=== PATIENT | male | born 1940 | race Caucasian/White ===

== ENCOUNTER 2016-12-11 20:12 | Inpatient (IN) | payer OTHER, MEDICARE ==
[2016-12-11 20:02] VITALS: O2SAT 97
[2016-12-11] MEDS ORDERED: DIPHTH/TETANUS/ACEL PERTUSSIS (BOOSTER) 0.5 ML VIAL/PFS IM ONE ×2 (20:16→20:39)
[2016-12-11] MEDS ORDERED: ceFAZolin 2 GM PREMIX 50 ML ONE (20:16)
[2016-12-11] MEDS ORDERED: LIDOCAINE 1%/EPINEPHrine 1:100,000 SOLN 30 ML VIAL ONE ×2 (20:16→21:56)
[2016-12-11] MEDS ORDERED: MORPHINE SULFATE 8 MG/ML INJ ONE (20:20)
[2016-12-11] MEDS ORDERED: ONDANSETRON HCL 4 MG/2 ML VIAL ONE (20:20)
[2016-12-11 20:31] LABS: I-STAT POTASSIUM 3.6 MMOL/L (3.5-4.9)
[2016-12-11 20:39] LABS: AUTOMATED NEUTROPHIL # 4.5 TH/MM3 (1.8-7.7); BASOPHIL % 0.1 % (0.0-2.0); EOSINOPHIL # 0.1 TH/MM3 (0-0.4); HEMATOCRIT 37.6 % (39.0-51.0); LYMPH % 55.5 % (9.0-44.0); LYMPHOCYTE # 7.2 TH/MM3 (1.0-4.8); MEAN CELL VOLUME 90.9 FL (80.0-100.0); MEAN CORPUSCULAR HEMOGLOBIN 31.3 PG (27.0-34.0); MEAN CORPUSCULAR HGB CONC 34.4 % (32.0-36.0); MONO % 8.3 % (0.0-8.0); NEUT % 35.1 % (16.0-70.0); PLATELET COUNT 193 TH/MM3 (150-450); RED BLOOD COUNT 4.13 MIL/MM3 (4.50-5.90); RED CELL DISTRIBUTION WIDTH 13.2 % (11.6-17.2); WHITE BLOOD COUNT 12.9 TH/MM3 (4.0-11.0)
[2016-12-11] MEDS ORDERED: ceFAZolin 2 GM PREMIX 50 ML IV STA (20:39)
[2016-12-11 20:41] LABS: HEMO FLAGS AUTO DIFF
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
[2016-12-11 20:45] LABS: APTT (PATIENT) 24.8 SEC (24.3-30.1); PROTHROMBIN TIME - PATIENT 10.9 SEC (9.8-11.6)
[2016-12-11] MEDS ORDERED: SODIUM CHLOR 0.9% 1000 ML INJ 1,000 ML IV ONE (20:45)
[2016-12-11] MEDS ORDERED: IOHEXOL 350 MG/ML 10 ML VIAL (for RAD DIAG) IV ONE (20:46)
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
[2016-12-11 21:12] LABS: BANDS 1 % (0-6); NEUTROPHIL # MANUAL DIFF 4.3 TH/MM3 (1.8-7.7); PLATELET ESTIMATE SMEAR NORMAL (NORMAL); PLATELET MORPHOLOGY NORMAL (NORMAL); POLYS (SEG NEUTROPHILS) 32 % (16-70); SCAN/DIFF FINAL DIFF MANUAL; WBC DIFF SAMPLE 100
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
[2016-12-11] MEDS ORDERED: CHLORHEXIDINE GLUCONATE 2 % 1 PACK (2 CLOTHS) TOP PRN (21:45)
[2016-12-11] MEDS ORDERED: ENALAPRILAT 1.25 MG/ML VIAL IV PRN (21:45)
[2016-12-11] MEDS ORDERED: MISCELLANEOUS NURSING INFORMATION XX SCH (21:45)
[2016-12-11] MEDS: DOCUSATE SODIUM 100 MG CAP PO SCH (21:45)
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
[2016-12-11 22:00] VITALS: PULSE 104
[2016-12-11] MEDS: SODIUM CHLOR 0.9% 1000 ML INJ 1,000 ML IV SCH (22:00)
[2016-12-11] MEDS ORDERED: LIDOCAINE 1%/EPINEPHrine 1:200,000 PF SOLN 30 ML VIAL OTHER ONE (22:00)
[2016-12-11] MEDS: MORPHINE SULFATE 8 MG/ML INJ IV PUSH PRN ×2 (22:20→23:38)
[2016-12-11] MEDS: SODIUM CHLORIDE 0.9% FLUSH 5 ML FLUSH IVF PRN (22:35)
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
[2016-12-11 23:18] VITALS: O2SAT 96
[2016-12-11] MEDS: PANTOPRAZOLE SODIUM 40 MG VIAL IVP SCH (23:38)
[2016-12-11] MEDS: ONDANSETRON HCL 4 MG/2 ML VIAL IV PRN (23:38)
[2016-12-12] VITALS (14 sets, daily range): BP systolic 120–193; BP diastolic 60–90; PULSE 74–98; RESP 14–22; TEMP 97.6–98.8; O2SAT 93–99
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
[2016-12-12] MEDS: BACITRACIN TOP OINT 15 GM TUBE TOP SCH ×3 (00:36→21:00)
[2016-12-12] MEDS: MORPHINE SULFATE 8 MG/ML INJ IV PUSH PRN ×4 (01:59→21:05)
[2016-12-12] MEDS ORDERED: PROMETHAZINE INJ 25 MG/ML VIAL IM ONE (02:15)
[2016-12-12] MEDS ORDERED: LIDOCAINE 1%/EPINEPHrine 1:200,000 PF SOLN 30 ML VIAL OTHER ONE (03:45)
[2016-12-12] MEDS: CHLORHEXIDINE GLUCONATE 2 % 1 PACK (2 CLOTHS) TOP SCH (04:00)
[2016-12-12 04:09] LABS: AUTOMATED NEUTROPHIL # 10.4 TH/MM3 (1.8-7.7); HEMO FLAGS DIFF FINAL; LYMPH % 4.1 % (9.0-44.0); LYMPHOCYTE # 0.5 TH/MM3 (1.0-4.8); MEAN CELL VOLUME 91.2 FL (80.0-100.0); MEAN CORPUSCULAR HEMOGLOBIN 30.5 PG (27.0-34.0); MEAN CORPUSCULAR HGB CONC 33.5 % (32.0-36.0); MONO % 7.8 % (0.0-8.0); NEUT % 88.1 % (16.0-70.0); PLATELET COUNT 185 TH/MM3 (150-450); RED BLOOD COUNT 4.39 MIL/MM3 (4.50-5.90); RED CELL DISTRIBUTION WIDTH 13.2 % (11.6-17.2); WHITE BLOOD COUNT 11.8 TH/MM3 (4.0-11.0)
[2016-12-12 04:31] LABS: BICARBONATE 24.8 MEQ/L (21.0-32.0); POTASSIUM 4.3 MEQ/L (3.5-5.1)
--- NOTE | 2016-12-12 05:04 | RADRPT ---
EXAM DATE/TIME: 12/12/2016 04:14 [facility] COMPARISON: CHEST SINGLE AP, December 11, 2016, 20:06. INDICATIONS : Shortness of breath. MEDICAL HISTORY : None. SURGICAL HISTORY : None. ENCOUNTER: Initial ACUITY: 2 days PAIN SCORE: Non-responsive. LOCATION: Bilateral chest FINDINGS: There is dependent atelectasis in the lungs. No new consolidation or effusion. No pneumothorax. Heart size upper limits normal. CONCLUSION: 1. Dependent atelectasis in the lungs. No new consolidation or effusion. Elton Cross MD on December 12, 2016 at 5:00 Board Certified Radiologist. This report was verified electronically.
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
[2016-12-12] MEDS: ONDANSETRON HCL 4 MG/2 ML VIAL IV PRN ×3 (08:13→21:04)
[2016-12-12] MEDS: DOCUSATE SODIUM 100 MG CAP PO SCH ×2 (09:00→21:00)
[2016-12-12] MEDS ORDERED: GLUCAGON 1 MG/ML VIAL OTHER PRN (10:00)
[2016-12-12] MEDS: SODIUM CHLOR 0.9% 1000 ML INJ 1,000 ML IV SCH ×2 (11:40→23:20)
[2016-12-12] MEDS: INSULIN NovoLIN REGULAR SUPPLEMENTAL SCALE SQ SCH ×3 (11:45→21:00)
[2016-12-12] MEDS ORDERED: MULTIVITAMIN INJ 10 ML, THIAMINE INJ 100 MG, FOLIC ACID INJ 1 MG in SODIUM CHLORID 0.9%... IV ONE (12:00)
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
--- NOTE | 2016-12-12 18:47 | RADRPT ---
EXAM DATE/TIME: 12/12/2016 17:19 [facility] COMPARISON: CT CERVICAL SPINE W/O CONTRAST, December 11, 2016, 20:33. INDICATIONS : Fracture. CONTRAST: 18 cc Omniscan (gadodiamide) IV MEDICAL HISTORY : Hypertension. Diabetes mellitus type 2. SURGICAL HISTORY : Left knee partial replacement. ENCOUNTER: Subsequent ACUITY: 2 day PAIN SCORE: 7/10 LOCATION: neck TECHNIQUE: Multiplanar, multisequence MRI examination of the cervical spine was performed. FINDINGS: Comminuted burst fracture of the C2 vertebral body is again identified. There is prevertebral soft ti ssue swelling but no evidence of significant epidural hematoma. Slight anterior subluxation of C2 on C3 remains evident. Fracture fragments remain well apposed. The vertebral arteries especially on the right containing normal signal void. There no findings sugge stive of occlusion or injury. Craniocervical junction and remaining vertebral body alignment are intact. Degenerative disc disease or spondylosis is again identified at C4-5, C5-6 and C6-7. The spinal cord intrinsically appears normal. There is no evidence of edema or focal hemorrhage. CONCLUSION: Burst fracture of C2 with slight anterior subluxation of C2 on C3. Prevertebral soft tissue swelling involving the upper and mid cervical spine. No evidence of significant epidural hematoma, vertebral artery occlusion or spinal cord injury. José Manuel Vivar MD on December 12, 2016 at 18:37 Board Certified Radiologist. This report was verified electronically.
[2016-12-12] MEDS ORDERED: GADODIAMIDE PF 287 MG/ML 20 ML VIAL (for RAD MRI) IV ONE (18:55)
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
[2016-12-12] MEDS: MAGNESIUM HYDROXIDE SUSP 30 ML CUP PO SCH (21:00)
[2016-12-12] MEDS: SODIUM CHLORIDE 0.9% FLUSH 5 ML FLUSH IVF PRN (21:05)
[2016-12-12] MEDS: PANTOPRAZOLE SODIUM 40 MG VIAL IVP SCH (21:05)
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
[2016-12-13] VITALS (12 sets, daily range): BP systolic 145–164; BP diastolic 66–83; PULSE 70–92; RESP 13–26; TEMP 97.5–98.8; O2SAT 94–100
[2016-12-13] MEDS: SODIUM CHLOR 0.9% 1000 ML INJ 1,000 ML IV SCH ×3 (00:23→15:28)
[2016-12-13] MEDS: MORPHINE SULFATE 8 MG/ML INJ IV PUSH PRN ×3 (02:22→16:43)
[2016-12-13] MEDS: CHLORHEXIDINE GLUCONATE 2 % 1 PACK (2 CLOTHS) TOP SCH (04:00)
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
[2016-12-13] MEDS: BACITRACIN TOP OINT 15 GM TUBE TOP SCH ×2 (09:00→22:32)
[2016-12-13] MEDS: DOCUSATE SODIUM 100 MG CAP PO SCH ×2 (09:45→22:27)
[2016-12-13] MEDS: ONDANSETRON HCL 4 MG/2 ML VIAL IV PRN (10:02)
[2016-12-13] MEDS ORDERED: DEXAMETHASONE SOD PHOS 4 MG/ML VIAL IV PUSH PRN (11:00)
[2016-12-13] MEDS ORDERED: PROCHLORPERAZINE INJ 10 MG/2 ML VIAL IVS PRN (11:00)
[2016-12-13] MEDS: INSULIN NovoLIN REGULAR SUPPLEMENTAL SCALE SQ SCH ×3 (11:00→22:30)
[2016-12-13] MEDS ORDERED: METF500T PO (11:24)
[2016-12-13] MEDS ORDERED: GLIP5TAB8 PO (11:29)
[2016-12-13] MEDS ORDERED: CHOL100025 CHEW (11:29)
[2016-12-13] MEDS ORDERED: AMLO5CAP3 PO (11:29)
[2016-12-13] MEDS ORDERED: VITA10002 PO (11:29)
[2016-12-13] MEDS ORDERED: ATEN25TA PO ×2 (11:29)
[2016-12-13] MEDS ORDERED: ASPI-110 PO (11:29)
[2016-12-13] MEDS ORDERED: SIMV40TA PO (11:29)
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
[2016-12-13] MEDS: MAGNESIUM HYDROXIDE SUSP 30 ML CUP PO SCH (22:27)
[2016-12-13] MEDS: PANTOPRAZOLE SODIUM 40 MG VIAL IVP SCH (23:27)
[2016-12-14] VITALS: BP 151/80; PULSE 87; RESP 18; TEMP 95.8; O2SAT 93
[2016-12-14 04:00] VITALS: BP 158/88; PULSE 81; RESP 22; TEMP 96.8; O2SAT 93
[2016-12-14] MEDS: CHLORHEXIDINE GLUCONATE 2 % 1 PACK (2 CLOTHS) TOP SCH (05:47)
[2016-12-14] MEDS: INSULIN NovoLIN REGULAR SUPPLEMENTAL SCALE SQ SCH ×4 (06:20→20:49)
[2016-12-14 08:00] VITALS: BP 177/93; PULSE 91; RESP 20; TEMP 97.1; O2SAT 98
[2016-12-14] MEDS ORDERED: NON-FORMULARY DRUG (Amlodipine-Benazepril 1 CAP) PO SCH (09:00)
[2016-12-14] MEDS: BACITRACIN TOP OINT 15 GM TUBE TOP SCH ×2 (09:00→21:00)
[2016-12-14] MEDS: oxyCODONE/ACETAMINOPHEN 5 MG/325 MG TAB PO PRN ×2 (09:41→15:34)
[2016-12-14] MEDS: SODIUM CHLOR 0.9% 1000 ML INJ 1,000 ML IV SCH ×3 (09:41→20:58)
[2016-12-14] MEDS: amLODIPine BESYLATE 5 MG TAB PO SCH (09:42)
[2016-12-14] MEDS: LACTULOSE SYRUP 20 GM/30 ML CUP PO SCH (09:42)
[2016-12-14] MEDS: CHOLECALCIFEROL (VIT D3) 1000 UNIT TAB PO SCH (09:42)
[2016-12-14] MEDS: CYANOCOBALAMIN 1,000 MCG TAB PO SCH (09:42)
[2016-12-14] MEDS: LISINOPRIL 20 MG TAB PO SCH (09:42)
[2016-12-14] MEDS: DOCUSATE SODIUM 100 MG CAP PO SCH ×2 (09:42→20:51)
[2016-12-14] MEDS: ATENOLOL 25 MG TAB PO SCH (09:42)
[2016-12-14] MEDS: metFORMIN HCL 500 MG TAB PO SCH ×2 (09:45→15:33)
[2016-12-14] MEDS: glipiZIDE 5 MG TAB PO SCH ×2 (09:45→15:33)
--- NOTE | 2016-12-14 11:44 | RADRPT ---
EXAM DATE/TIME: 12/14/2016 11:20 [facility] COMPARISON: MRI CERVICAL SPINE W & W/O CONTRAST, December 12, 2016, 17:19. CT CERVICAL SPINE W/O CONTRAST, December 11, 2016, 20:33. INDICATIONS : Evaluate C-2 fracture MEDICAL HISTORY : Hypertension. Diabetes mellitus type I. SURGICAL HISTORY : Total knee replacement, left. ENCOUNTER: Subsequent ACUITY: 4 - 6 days PAIN SCORE: 2/10 LOCATION: chest FINDINGS: There is minimal subluxation of C2 on C3 unchanged from the CT scan in this patient with hangman's ty pe fracture with subluxation of 3-4 mm.. The foramen are clear. Multilevel degenerative changes prese nt throughout the cervical spine. CONCLUSION: 1. Unchanged alignment of hangman's fracture C2 Norm Currie MD on December 14, 2016 at 11:39 Board Certified Radiologist. This report was verified electronically.
[2016-12-14 12:00] VITALS: BP 147/67; PULSE 64; RESP 18; TEMP 97.1; O2SAT 97
[2016-12-14] MEDS ORDERED: ONDA4INJ2 IV (12:45)
[2016-12-14] MEDS ORDERED: DOCU1CAP39 PO (12:45)
[2016-12-14] MEDS ORDERED: PANT40P PO (12:45)
[2016-12-14] MEDS ORDERED: PROC1INJ IVS (12:45)
[2016-12-14] MEDS ORDERED: OXYC1TAB63 PO (12:45)
[2016-12-14] MEDS ORDERED: MILKSUS PO (12:45)
[2016-12-14] MEDS ORDERED: LACT10SO PO (12:45)
[2016-12-14] MEDS ORDERED: LISI-515 PO (12:45)
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
[2016-12-14 16:00] VITALS: BP 148/73; PULSE 64; RESP 18; TEMP 98.1; O2SAT 97
[2016-12-14 20:00] VITALS: BP 162/82; PULSE 61; RESP 22; TEMP 97.2; O2SAT 97
[2016-12-14] MEDS: MAGNESIUM HYDROXIDE SUSP 30 ML CUP PO SCH (20:51)
[2016-12-14] MEDS: PRAVASTATIN SOD 80 MG TAB PO SCH (20:51)
[2016-12-14] MEDS: PANTOPRAZOLE SODIUM 40 MG VIAL IVP SCH (20:53)
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
[2016-12-15] VITALS: BP 156/81; PULSE 59; RESP 18; TEMP 97.6; O2SAT 96
[2016-12-15 04:00] VITALS: BP 178/78; PULSE 67; RESP 20; TEMP 97.7; O2SAT 97
[2016-12-15] MEDS: CHLORHEXIDINE GLUCONATE 2 % 1 PACK (2 CLOTHS) TOP SCH (04:00)
[2016-12-15] MEDS: metFORMIN HCL 500 MG TAB PO SCH ×2 (06:45→17:04)
[2016-12-15] MEDS: glipiZIDE 5 MG TAB PO SCH ×2 (06:45→17:04)
[2016-12-15] MEDS: INSULIN NovoLIN REGULAR SUPPLEMENTAL SCALE SQ SCH ×4 (06:45→20:23)
[2016-12-15] MEDS ORDERED: BISACODYL EC 5 MG TABEC PO ONE (07:30)
[2016-12-15] MEDS ORDERED: BISACODYL 10 MG SUPP RECTAL ONE (07:30)
[2016-12-15] MEDS ORDERED: MAGNESIUM CITRATE SOLN 300 ML BTL PO ONE (07:30)
[2016-12-15 08:05] VITALS: BP 160/77; PULSE 62; RESP 18; TEMP 96.4; O2SAT 94
[2016-12-15] MEDS: DOCUSATE SODIUM 100 MG CAP PO SCH ×2 (09:54→20:22)
[2016-12-15] MEDS: SODIUM CHLOR 0.9% 1000 ML INJ 1,000 ML IV SCH ×2 (09:54→17:04)
[2016-12-15] MEDS: ATENOLOL 25 MG TAB PO SCH (09:55)
[2016-12-15] MEDS: LISINOPRIL 20 MG TAB PO SCH (09:55)
[2016-12-15] MEDS: amLODIPine BESYLATE 5 MG TAB PO SCH (09:55)
[2016-12-15] MEDS: LACTULOSE SYRUP 20 GM/30 ML CUP PO SCH (09:55)
[2016-12-15] MEDS: CYANOCOBALAMIN 1,000 MCG TAB PO SCH (09:55)
[2016-12-15] MEDS: CHOLECALCIFEROL (VIT D3) 1000 UNIT TAB PO SCH (09:55)
[2016-12-15] MEDS: BACITRACIN TOP OINT 15 GM TUBE TOP SCH ×2 (10:05→20:23)
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
--- NOTE | 2016-12-15 15:58 | RADRPT ---
EXAM DATE/TIME: 12/15/2016 14:44 [facility] COMPARISON: CT CERVICAL SPINE W/O CONTRAST, December 11, 2016, 20:33. MRI CERVICAL SPINE W & W/O CONTRAST, December 12, 2016, 17:19. SPINE CERVICAL LTD (AP&LAT), December 14, 2016, 11:20. INDICATIONS : Evaluate C2 Fracture MEDICAL HISTORY : Hypertension. Diabetes mellitus type I. SURGICAL HISTORY : Total knee replacement, left. ENCOUNTER: Subsequent ACUITY: 4 - 6 days PAIN SCORE: 2/10 LOCATION: neck FINDINGS: In the neutral position there is slight anterolisthesis of C2 on C3 unchanged which is stable in flex ion though there is slight distraction of the C2 posterior elements in flexion that is decreased with extension. Degree of anterolisthesis of C2 body on C3 is stable in all positions. Multilevel osteoph yte formation. CONCLUSION: No significant interval change in alignment of the cervical spine. Momo Pereira MD on December 15, 2016 at 15:42 Board Certified Radiologist. This report was verified electronically.
[2016-12-15 16:16] VITALS: BP 170/80; PULSE 64; RESP 20; TEMP 97.6
[2016-12-15] MEDS: oxyCODONE/ACETAMINOPHEN 5 MG/325 MG TAB PO PRN (17:58)
[2016-12-15 20:00] VITALS: BP 142/69; PULSE 63; RESP 18; TEMP 97.1; O2SAT 93
[2016-12-15] MEDS: MAGNESIUM HYDROXIDE SUSP 30 ML CUP PO SCH (20:22)
[2016-12-15] MEDS: PRAVASTATIN SOD 80 MG TAB PO SCH (20:22)
[2016-12-15] MEDS: PANTOPRAZOLE SODIUM 40 MG VIAL IVP SCH (21:54)
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
[2016-12-16] VITALS: BP 173/79; PULSE 60; RESP 22; TEMP 97.2; O2SAT 97
[2016-12-16] MEDS: SODIUM CHLOR 0.9% 1000 ML INJ 1,000 ML IV SCH (03:28)
[2016-12-16] MEDS: CHLORHEXIDINE GLUCONATE 2 % 1 PACK (2 CLOTHS) TOP SCH (03:37)
[2016-12-16 04:00] VITALS: BP 159/78; PULSE 58; RESP 18; TEMP 97.1; O2SAT 96
[2016-12-16] MEDS: metFORMIN HCL 500 MG TAB PO SCH (06:38)
[2016-12-16] MEDS: oxyCODONE/ACETAMINOPHEN 5 MG/325 MG TAB PO PRN (06:38)
[2016-12-16] MEDS: glipiZIDE 5 MG TAB PO SCH (06:38)
[2016-12-16] MEDS: INSULIN NovoLIN REGULAR SUPPLEMENTAL SCALE SQ SCH (07:00)
[2016-12-16 07:41] VITALS: BP 140/70; PULSE 55; RESP 20; TEMP 97.9; O2SAT 94
[2016-12-16 08:31] VITALS: PULSE 67
[2016-12-16] MEDS: amLODIPine BESYLATE 5 MG TAB PO SCH (08:32)
[2016-12-16] MEDS: CYANOCOBALAMIN 1,000 MCG TAB PO SCH (08:32)
[2016-12-16] MEDS: CHOLECALCIFEROL (VIT D3) 1000 UNIT TAB PO SCH (08:33)
[2016-12-16] MEDS: LISINOPRIL 20 MG TAB PO SCH (08:33)
[2016-12-16] MEDS: LACTULOSE SYRUP 20 GM/30 ML CUP PO SCH (08:33)
[2016-12-16] MEDS: ATENOLOL 25 MG TAB PO SCH (08:33)
[2016-12-16] MEDS: DOCUSATE SODIUM 100 MG CAP PO SCH (08:33)
[2016-12-16] MEDS: BACITRACIN TOP OINT 15 GM TUBE TOP SCH (08:33)
[2016-12-26] MEDS ORDERED: PANT40TA3 PO (08:24)
[2016-12-26] MEDS ORDERED: GLIP5TAB8 PO (08:24)
[2016-12-26] MEDS ORDERED: MELA1TAB22 PO (08:24)
[2016-12-26] MEDS ORDERED: HYDR-3516 PO (08:24)
[2016-12-26] MEDS ORDERED: VITA10002 PO (08:24)
[2016-12-26] MEDS ORDERED: CHOL100025 CHEW (08:24)
[2016-12-26] MEDS ORDERED: SIMV40TA PO (08:24)
[2016-12-26] MEDS ORDERED: AMLO5CAP3 PO (08:24)
[2016-12-26] MEDS ORDERED: DOCU1CAP39 PO (08:24)
[2016-12-26] MEDS ORDERED: ASPI-110 PO (08:24)
[2016-12-26] MEDS ORDERED: ATEN25TA PO (08:24)
[2016-12-26] MEDS ORDERED: METF500T PO (08:24)
[2017-04-03] MEDS ORDERED: [UNRECOGNIZED DRUG - SUPPLY] (11:21)
[2017-04-03] MEDS ORDERED: [UNRECOGNIZED DRUG - SUPPLY] TOPICAL (11:36)
== END 2016-12-16 09:38 | DRG 500 ==
LOC: NEPI 20:12 → EDBD 20:43 → NEDA 20:43 → N03A 20:59 → N05B 12-13 17:13
PROVIDERS: ADMIT Surgery; ATTEND Surgery
PROC: 0JQ00ZZ Repair Scalp Subcutaneous Tissue and Fascia, Open Approach (ICD-10-PCS; principal; 2016-12-11)
PROC: 0CQ00ZZ Repair Upper Lip, Open Approach (ICD-10-PCS; 2016-12-11)
DX: S12.100A Unspecified displaced fracture of second cervical vertebra, initial encounter for closed fracture (principal); S06.329A Contusion and laceration of left cerebrum with loss of consciousness of unspecified duration, initial encounter; I95.9 Hypotension, unspecified; S02.19XA Other fracture of base of skull, initial encounter for closed fracture; S02.40CA Maxillary fracture, right side, initial encounter for closed fracture; S06.2X9A Diffuse traumatic brain injury with loss of consciousness of unspecified duration, initial encounter; S12.200A Unspecified displaced fracture of third cervical vertebra, initial encounter for closed fracture; S01.411A Laceration without foreign body of right cheek and temporomandibular area, initial encounter; S50.811A Abrasion of right forearm, initial encounter; S01.81XA Laceration without foreign body of other part of head, initial encounter; S02.5XXA Fracture of tooth (traumatic), initial encounter for closed fracture; S80.212A Abrasion, left knee, initial encounter; S80.211A Abrasion, right knee, initial encounter; S01.511A Laceration without foreign body of lip, initial encounter; S50.812A Abrasion of left forearm, initial encounter; M51.36 Other intervertebral disc degeneration, lumbar region; I10 Essential (primary) hypertension; E11.9 Type 2 diabetes mellitus without complications; E78.00 Pure hypercholesterolemia, unspecified; E78.5 Hyperlipidemia, unspecified; R40.2411 Glasgow coma scale score 13-15, in the field [EMT or ambulance]; V44.5XXA Car driver injured in collision with heavy transport vehicle or bus in traffic accident, initial encounter; Y92.410 Unspecified street and highway as the place of occurrence of the external cause; Z83.3 Family history of diabetes mellitus; Z79.4 Long term (current) use of insulin
CPT/HCPCS: 70450; 70486; 70553; 71010; 71260; 72040; 72125; 72128; 72131; 72156; 72170; 73020; 73070; 73560; 74177; 80048; 80320; 82435; 82565; 82947; 82948; 84132; 84295; 84520; 85007; 85025; 85027; 85384; 85610; 85730; 86850; 86900; 86901; 86920; 87641; 90471; 90715; 94150; 96374; 96375; 99291; A9579; C9113; G0390; J0690; J2270; J2405; J3411; J7030; J7040; L0150; L0172; Q9967

== ENCOUNTER 2017-01-06 20:39 | Emergency (ER) | payer MEDICARE ==
[~2017-01-06] VITALS: Ht 185.4 cm; Wt 82.0 kg
[~2017-01-06 20:39] MED LIST: AMLO5CAP3 PO; ASPI-110 PO; ATEN25TA PO; CHOL100025 CHEW; DOCU1CAP39 PO; GLIP5TAB8 PO; HYDR-3516 PO; MELA1TAB22 PO; METF500T PO; PANT40TA3 PO; SIMV40TA PO; VITA10002 PO
[2017-01-06 20:42] VITALS: BP 132/67; PULSE 86; RESP 18; TEMP 97.9; O2SAT 97
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
[2017-01-06] MEDS ORDERED: CHOL1TAB PO (21:32)
[2017-01-06] MEDS ORDERED: AMLO5CAP3 PO (21:32)
[2017-01-06] MEDS ORDERED: MELA5TAB15 PO (21:34)
[2017-01-06] MEDS ORDERED: SIMV20TA PO (21:36)
[2017-01-06] MEDS ORDERED: MILKSUS PO (21:39)
[2017-01-06] MEDS ORDERED: MAPA325T PO (21:41)
[2017-01-06 22:21] LABS: AUTOMATED NEUTROPHIL # 2.8 TH/MM3 (1.8-7.7); BASOPHIL % 0.2 % (0.0-2.0); EOSINOPHIL # 0.2 TH/MM3 (0-0.4); EOSINOPHIL % 3.1 % (0.0-4.0); HEMATOCRIT 37.2 % (39.0-51.0); HEMO FLAGS DIFF FINAL; LYMPH % 44.8 % (9.0-44.0); MEAN CELL VOLUME 88.3 FL (80.0-100.0); MEAN CORPUSCULAR HEMOGLOBIN 31.2 PG (27.0-34.0); MEAN CORPUSCULAR HGB CONC 35.3 % (32.0-36.0); MONO % 9.8 % (0.0-8.0); NEUT % 42.1 % (16.0-70.0); PLATELET COUNT 260 TH/MM3 (150-450); RED BLOOD COUNT 4.21 MIL/MM3 (4.50-5.90); RED CELL DISTRIBUTION WIDTH 13.6 % (11.6-17.2); WHITE BLOOD COUNT 6.7 TH/MM3 (4.0-11.0)
--- NOTE | 2017-01-06 22:24 | RADRPT ---
EXAM DATE/TIME: 01/06/2017 21:45 [facility] COMPARISON: CT BRAIN W/O CONTRAST, December 24, 2016, 17:15. INDICATIONS : Cephalgia and general weakness. RADIATION DOSE: 47.37 CTDIvol (mGy) MEDICAL HISTORY : Hypertension. Spinal stenosis. Maxillary fracture. TBI. SURGICAL HISTORY : Hernia repair. ENCOUNTER: Initial ACUITY: 1 week PAIN SCALE: 3/10 LOCATION: cranial TECHNIQUE: Multiple contiguous axial images were obtained of the head. Using automated exposure control and adj ustment of the mA and/or kV according to patient size, radiation dose was kept as low as reasonably a chievable to obtain optimal diagnostic quality images. FINDINGS: CEREBRUM: The ventricles are normal for age. No evidence of midline shift, mass lesion, hemorrhage or acute in farction. No extra-axial fluid collections are seen. POSTERIOR FOSSA: The cerebellum and brainstem are intact. The 4th ventricle is midline. The cerebellopontine angle i s unremarkable. EXTRACRANIAL: The visualized portion of the orbits is intact. SKULL: The calvaria is intact. No evidence of skull fracture. CONCLUSION: Normal examination for a patient of this age. No significant change has occurred. Elton Cross MD on January 06, 2017 at 22:20 Board Certified Radiologist. This report was verified electronically.
[2017-01-06 22:30] LABS: APTT (PATIENT) 26.4 SEC (24.3-30.1); PROTHROMBIN TIME - PATIENT 10.6 SEC (9.8-11.6)
[2017-01-06 22:38] LABS: ALT (GPT) 23 U/L (12-78); ANION GAP 9 MEQ/L (5-15); AST (GOT) 14 U/L (15-37); BICARBONATE 25.7 MEQ/L (21.0-32.0); BLOOD UREA NITROGEN 14 MG/DL (7-18); CHLORIDE 99 MEQ/L (98-107); GLOMERULAR FILTRATION RATE 85 ML/MIN (>89); MAGNESIUM 1.8 MG/DL (1.5-2.5); POTASSIUM 4.2 MEQ/L (3.5-5.1); SODIUM (NA) 134 MEQ/L (136-145)
[2017-01-06 22:41] LABS: ALKALINE PHOSPHATASE 56 U/L (45-117); TOTAL BILIRUBIN ADULT 0.5 MG/DL (0.2-1.0)
--- NOTE | 2017-01-06 23:21 | RADRPT ---
EXAM DATE/TIME: 01/06/2017 22:55 [facility] COMPARISON: No previous studies available for comparison. INDICATIONS : Radiculopathy. MEDICAL HISTORY : Hypertension. Diabetes. SURGICAL HISTORY : Knee. Eardrum. Eye. Cyst removal. ENCOUNTER: Initial ACUITY: 1 day PAIN SCORE: 3/10 LOCATION: Lower back. TECHNIQUE: Multiplanar multisequence MRI of the lumbar spine was performed without contrast. FINDINGS: The most caudal appearing lumbar vertebra is numbered as L5. VERTEBRAE: Homogeneous signal, with the exception of a prominent Schmorl the deformity along the superior endpla te L5. Chronic in plate changes are seen at L4-5. Disc space narrowing at L2-3, L3-4 and L4-5 levels. . Normal alignment. CONUS: Normal level and configuration. T12-L1: The thecal sac has a normal diameter. No evidence of disc bulge or protrusion. The neural foramina are patent bilaterally. L1-L2: The thecal sac has a normal diameter. No evidence of disc bulge or protrusion. The neural foramina are patent bilaterally. L2-L3: Mild broad-based disc bulge abuts the ventral thecal sac. No canal stenosis. Moderate facet arthropat hy. The neural foramina are patent bilaterally. L3-L4: Mild broad-based disc bulge abuts the ventral thecal sac. No canal stenosis. Moderate facet arthropat hy. The neural foramina are patent bilaterally. L4-L5: Moderate broad-based disc bulge abuts the ventral thecal sac and both L5 nerve roots in the lateral r ecesses. The disc also comes in close proximity to the exiting L4 nerve roots. This causes mild canal stenosis. Marked facet arthropathy. Mild neural foraminal narrowing bilaterally. L5-S1: The thecal sac has a normal diameter. No evidence of disc bulge or protrusion. The neural foramina are patent bilaterally. Moderate facet arthropathy. CONCLUSION: 1. Mild broad-based disc bulges at L2-3 and L3-4 levels without canal stenosis. 2. Moderate broad-based disc bulge at L4-5 causes mild canal stenosis. The disc abuts both L5 nerve r oots in the lateral recesses and comes in close proximity to both L4 exiting nerve roots. 3. Diffuse facet arthropathy. Valdemar Canseco MD on January 06, 2017 at 23:16 Board Certified Radiologist. This report was verified electronically.
[2017-01-07 00:16] VITALS: BP 139/66; PULSE 80; RESP 18; O2SAT 98
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
[2017-01-07 02:06] VITALS: BP 132/68
--- NOTE | 2017-01-07 14:06 | EKG ---
Date Performed: 01/06/2017 Time Performed: 21:36:57 PTAGE: 77 years EKG: Sinus rhythm MINIMAL ST DEPRESSION BORDERLINE ECG NO PREVIOUS TRACING DOCTOR: Danyel Ruffin Interpretating Date/Time 01/07/2017 14:02:18
[2017-04-03] MEDS ORDERED: [UNRECOGNIZED DRUG - SUPPLY] (11:21)
[2017-04-03] MEDS ORDERED: [UNRECOGNIZED DRUG - SUPPLY] TOPICAL (11:36)
== END 2017-01-07 02:13 ==
LOC: NEPE 20:39
DX: M21.371 Foot drop, right foot (principal); M21.372 Foot drop, left foot; M51.26 Other intervertebral disc displacement, lumbar region; G57.32 Lesion of lateral popliteal nerve, left lower limb; G57.31 Lesion of lateral popliteal nerve, right lower limb; R51 Headache; R53.1 Weakness; I10 Essential (primary) hypertension; E11.9 Type 2 diabetes mellitus without complications; Z79.84 Long term (current) use of oral hypoglycemic drugs; Z79.899 Other long term (current) drug therapy
CPT/HCPCS: 70450; 72148; 80053; 83735; 85025; 85610; 85730; 93005